=== PATIENT | male | born 1975 | race American Indian/Alaskan Native ===

== ENCOUNTER 2020-09-12 20:53 | Emergency (ER) | payer OTHER, SELFPAY ==
[2020-09-13] MEDS ORDERED: ACETAMINOPHEN 500 MG TAB PO ONE (03:43)
--- NOTE | 2020-09-13 04:00 | Emergency Department Report ---
ED General Adult HPI - General Chief complaint: Fever Stated complaint: COVID+/WORSENING SYMPTOMS Time Seen by Provider: 09/13/20 03:36 Source: patient Mode of arrival: Ambulatory Limitations: No Limitations - History of Present Illness Initial comments: 44 y/o male pt presents to ED w/ complaints of unilateral left-sided headache starting four days ago. No preceding fall, trauma, or injury. Pt states he has experienced headaches intermittently on prior occasions but states this headache is different from the others he has experienced. Patient is not anticoagulated. He tested positive for COVID-19 last week. No medications prior to arrival. Denies neck stiffness, rash, vomiting, abnormal bleeding/bruising, syncope, seizure. Denies all other complaints at this time. - Related Data Allergies Allergy/AdvReac Type Severity Reaction Status Date / Time No Known Allergies Allergy Unverified 09/12/20 22:30 ED Review of Systems ROS: Stated complaint: COVID+/WORSENING SYMPTOMS Other details as noted in HPI Other: GENERAL: Positive for fever. ENT: Negative for ear pain, difficulty hearing, sore throat, nasal congestion, epistaxis. CARDIOVASCULAR: Negative for chest pain, palpitations, lower extremity swelling. PULMONARY: Negative for cough, dyspnea, wheezing, orthopnea, cyanosis. GASTROINTESTINAL: Negative for abdominal pain, nausea, vomiting, diarrhea, constipation. MUSCULOSKELETAL: Positive for myalgias. NEUROLOGICAL: Positive for headache. INTEGUMENTARY: Negative for erythema, rash, diaphoresis, laceration, ecchymosis. HEMATOLOGICAL: Negative for hemoptysis, hematemesis, hematochezia, hematuria. PSYCHIATRIC: Negative for hallucinations, suicidal ideation, homicidal ideation, anxiety, depression. ED Past Medical Hx - Past Medical History Previous Medical History?: No - Surgical History Past Surgical History?: No ED Physical Exam - General Limitations: No Limitations - Other Other exam information: General: Awake and alert. No acute distress. Head: Atraumatic, normocephalic. Eyes: EOMI. Pupils are equal and round. Normal sclera and conjunctiva. ENT: Oral mucosa is moist. Normal pharyngeal exam. Neck: Supple. No lymphadenopathy. Pulmonary: No respiratory distress. Clear to auscultation bilaterally. Cardiac: Tachycardic. Pulses are palpable and equal bilaterally. No lower extremity cyanosis or edema. Skin: Warm and dry. No rashes. Abdomen: Soft, non-tender, non-protuberant. No guarding, rigidity, or rebound. Bowel sounds are normal. No organomegaly or masses noted. Back: Normal alignment. No CVA tenderness. Extremities: Symmetrical. Full range of motion intact. Neurological: Alert and oriented, appropriately interactive, no focal deficits. Psych: Cooperative. Appropriate mood and affect. Speech is evenly metered. Thoughts are logically construed. ED Course Vital Signs 09/12/20 22:31 Temperature 103.1 F H Pulse Rate 95 H Respiratory 18 Rate Blood Pressure 141/51 O2 Sat by Pulse 95 Oximetry ED Medical Decision Making - Lab Data Result diagrams: 09/13/20 03:56 09/13/20 03:56 - Medical Decision Making Differential diagnosis including but not limited to: intracranial hemorrhage, migraine headache, tension headache, dehydration, electrolyte abnormality, meningitis, encephalitis Indication for CT Head: -Severe headache, reported as worse than prior headaches -Age > 40 ([place] SAH rule) On reevaluation, patient is stable and symptoms have improved. Repeat neurological exam remains nonfocal. He is resting comfortably, no acute distress. CT of the head is unremarkable. Chest x-ray is negative. Labs cons istent with known COVID-19 infection. Mild dehydration noted; given IV fluids as well as IV Toradol for pain. No clinical indication for further diagnostic work-up and/or hospital admission at this time. Patient will be discharged home to continue symptomatic treatment and referred to primary care provider for close outpatient follow-up. Patient expressed understanding and is agreeable to plan of care. Disease transmission precautions discussed. Strict return precautions provided. History, exam, diagnostic testing, and current condition do not suggest worrisome pathology to warrant further testing, emergent intervention, admission, or specialist evaluation at this point. Additional testing such as MRI or lumbar puncture is not indicated at this time, but should be considered if symptoms worsen or recur. Discussed findings, presumptive diagnosis, need for follow-up and specific signs/symptoms that should prompt immediate return to the emergency department. Instructions were explained in detail to the patient in addition to giving written discharge information. Patient expressed understanding and was given the opportunity to ask questions, all of which were satisfactorily answered prior to discharge home. Case discussed with Dr. Givens, attending emergency physician, who agrees with diagnostic work-up/plan of care. Critical care attestation.: If time is entered above; I have spent that time in minutes in the direct care of this critically ill patient, excluding procedure time. ED Disposition Clinical Impression: COVID-19, Dehydration Disposition: DC-01 TO HOME OR SELFCARE Is pt being admited?: No Does the pt Need Aspirin: No Condition: Stable Instructions: COVID-19 Additional Instructions: Take Tylenol every 4 hours Motrin every 8 hours as needed for pain/fever. Rest. Drink plenty of fluids. Wash hands frequently to prevent disease transmission. Do not share food or drinks with others. Please adhere to CDC guidelines regarding isolation precautions. Follow-up with your primary care provider this week. Call today to schedule an appointment. See referral information below. Return to the emergency department immediately for new or worsening symptoms. Referrals: FRED RAMIREZ MD [Staff Physician] - 3-[address] [facility] [Provider Group] - 3-5 Days Forms: Work/School Release Form(ED) Time of Disposition: 06:42
[2020-09-13 04:11] LABS: Hematocrit 45.2 % (35.5-45.6); Hemoglobin 15.6 gm/dl (11.8-15.2); Mean Corpuscular HGB Conc 35 % (32-34); Mean Corpuscular Volume 90 fl (84-94); Platelet Count 135 K/mm3 (140-440); Red Blood Count 5.04 M/mm3 (3.65-5.03); Red Cell Distribution Width 12.8 % (13.2-15.2)
[2020-09-13 04:30] LABS: Alanine Aminotransferase 29 units/L (7-56); Albumin 4.5 g/dL (3.9-5); BUN/Creatinine Ratio 12; Blood Urea Nitrogen 16 mg/dL (9-20); Calcium 9.1 mg/dL (8.4-10.2); Hemolysis Index 12
[2020-09-13] MEDS ORDERED: SODIUM CHLORIDE 0.9% 1000 ML 1,000 ML IV ONE (04:32)
--- NOTE | 2020-09-13 04:39 | Cat Scan Report ---
CT head without contrast INDICATION : CARRION, worse than prior CARRION's, +COVID. TECHNIQUE: Axial imaging performed from the skull apex through the skull base without the use of con trast. All CT scans at this location are performed using CT dose reduction for ALARA by means of aut omated exposure control. COMPARISON: None FINDINGS: Parenchyma: No acute intracranial hemorrhage or parenchymal abnormality. Ventricles: Ventricles are normal in size and appear symmetric. Soft tissues: Soft tissues including the orbits appear normal. Bones: No acute osseous abnormality. Sinuses: Sinuses and mastoid air cells are clear. IMPRESSION: No acute abnormality. Signer Name: Antolin Montoya MD Signed: 09/13/2020 4:35 AM Workstation Name: [id number]
--- NOTE | 2020-09-13 04:44 | XRay Report ---
CHEST 1 VIEW INDICATION: COVID. COMPARISON: None FINDINGS: SUPPORT DEVICES: None. HEART: Within normal limits. LUNGS/PLEURA: No acute air space or interstitial disease. ADDITIONAL FINDINGS: None. IMPRESSION: 1. No acute findings. Signer Name: Antolin Montoya MD Signed: 09/13/2020 4:39 AM Workstation Name: [id number]
[2020-09-13] MEDS ORDERED: KETOROLAC 30 MG/1 ML INJ IV ONE (04:51)
[2020-09-13 07:29] VITALS: BP 129/72
[2020-09-13 07:53] LABS: Band Neutrophils # (Manual) 0.2 K/mm3; RBC Morphology Normal; Total Cells Counted 100
[2020-09-13 07:55] LABS: Large Platelets Rare; Platelet Estimate Cons
== END 2020-09-13 07:26 | disposition home or self-care (01) ==
LOC: ED 20:53
DX: U07.1 COVID-19 (principal); E86.0 Dehydration
CPT/HCPCS: 36415; 70450; 71045; 80053; 83735; 85007; 85025; 96361; 96374; 99284; J1885; J7030